=== PATIENT | female | born 1985 | race Caucasian/White ===

== ENCOUNTER 2017-06-26 14:47 | Emergency (ER) | payer MEDICAID ==
[2017-06-26] MEDS ORDERED: IPRATROPIUM/ALBUTEROL 0.5-2.5 MG/3 ML AMPUL NEB ONE ×2 (15:53→15:54)
[2017-06-26] MEDS ORDERED: ALBUTEROL SULFATE 0.083% NEB 2.5 MG/3 ML AMPUL NEB ONE (15:54)
[2017-06-26] MEDS ORDERED: PREDNISONE 20 MG TABLET PO ONE (16:00)
[2017-06-26] MEDS ORDERED: IPRATROPIUM BROMIDE 0.02% NEB 0.5 MG/2.5 ML AMPUL NEB ONE (16:00)
--- NOTE | 2017-06-26 16:01 | ER Document Report ---
HPI - HPI Patient complains to provider of: Asthma Pain Level: 0 Context: Patient is a 16 week 31-year-old female who presents emergency department with 2-3 days of shortness of breath. Patient does admit to history of asthma she states that she occasionally has a flare at this time a year and usually does fine with her home inhaler. She states that she went to use it she noticed that it was out of doses. She admits to dyspnea on exertion, shortness of breath. She states that she feels better at rest. Otherwise denies any productive cough, fever, chills. She admits to body aches due from coughing so much. States she has been taking Tylenol for discomfort. [facility] - REPRODUCTIVE Reproductive: DENIES: : Past Medical History - Social History Smoking Status: Never Smoker Family History: Reviewed & Not Pertinent Pulmonary Medical History: Reports: Hx Asthma - Immunizations Immunizations up to date: Yes Hx Diphtheria, Pertussis, Tetanus Vaccination: No Vertical Provider Document - CONSTITUTIONAL Agree With Documented VS: Yes Notes: PHYSICAL EXAM GENERAL: Alert, difficulty speaking in full sentences due to tachypnea and shortness of breath. HEENT: NCAT, pale conjunctiva, extraocular movements intact, pupils PERRL. external ear normal, no evidence of external auditory canal tenderness, blood/ drainage, cerumen impaction, TM intact without evidence of effusion, bulging, injection, MMM, Uvula midline. Airway patent. No evidence of tonsillar enlargement, peritonsillar abscess, retropharyngeal abscess. LUNGS: Diffuse wheezes and rhonchi worse with expiration in all lung hayden. No significant respiratory distress Patient maintaining her airway and able to speak in full sentences though labored breathing. HEART: Regular rate and rhythm. No murmurs, gallops, or rubs. ABDOMEN: Soft, nondistended, nontender. No guarding, rebound, or rigidity.. Bowel sounds present in all 4 quadrants. EXTREMITIES: Moves all 4 extremities spontaneously. No edema, radial and dorsalis pedis pulses 2/4 bilaterally. No cyanosis. NEUROLOGICAL: Alert and oriented x4. Normal speech. PSYCH: Normal affect, normal mood. SKIN: Warm, dry, normal turgor. No rashes or lesions noted. - INFECTION CONTROL TRAVEL OUTSIDE OF THE [place] IN LAST 30 DAYS: No - RESPIRATORY O2 Sat by Pulse Oximetry: 100 Course - Re-evaluation Re-evalutation: 06/26/17 16:00 patient is a 31-year-old female who is hemodynamically stable. patient states that she felt some improvement after first breathing treatment. Patient also concerned for worsening respiratory status and therefore was given prednisone for her acute asthma exacerbation. Patient remedicated with Atrovent for total of 3 doses. After her third dose she was ambulated in the emergency department with a desaturation down to 96% in immediate recovery to 98-99%. Heart rate remained approximately 100. She states that she felt much better walking in the ER. When seated back in her bed, still noted wheezes therefore she received 2 g of magnesium. Once completed wheezes greatly diminished in all hayden and patient's with stable vitals and clinically much improved. Case had been reviewed with RECENTERER Dr. Ayala who states that she will follow up with her on Tuesday for possible referral to sales service route manager given patient is medicated with family planning. Discussed with patient strict return precautions and is stable for discharge home. - Vital Signs Vital signs: Temp Pulse Resp BP Pulse Ox 98.0 F 100 18 123/70 100 06/26/17 15:05 06/26/17 15:05 06/26/17 15:05 06/26/17 15:05 06/26/17 15:05 Discharge - Discharge Clinical Impression: Asthma exacerbation Qualifiers: Asthma severity: moderate Asthma persistence: unspecified Qualified Code(s): J45.901 - Unspecified asthma with (acute) exacerbation Qualifiers: Weeks of gestation: 16 weeks Qualified Code(s): Z3A.16 - 16 weeks gestation of Condition: Good Disposition: HOME, SELF-CARE Additional Instructions: Please follow-up with Dr. Ayala on Tuesday. Her office contact numbers listed on this paperwork Asthma You have been diagnosed as having asthma. This is a condition where there is episodic tightness in the bronchial tubes. Allergies, infections, and polluted or cold air may be contributing factors. Emergency treatment of a severe asthma attack may include adrenaline shots , or bronchodilator aerosol. You may feel lightheaded, have a decreased exercise tolerance and a rapid pulse for an hour or two. Rest and get plenty of fluids. Home treatment of asthma requires bronchodilator drugs. These can be administered by injection, inhalation, or by mouth. Antibiotics and corticosteroids may be required for some patients. You should avoid chemical fumes, dusts, pollens, and exercising in very cold or dry air. If you smoke, stop!! If you develop a fever, increased wheezing, chest pain, or severe shortness of breath, you should contact the doctor immediately Prescriptions: Ipratropium Dalton [Atrovent Hfa] 12.9 gm IH ASDIR PRN #1 [id number] PRN Reason: Prednisone 20 mg PO TID 5 Days tablet Referrals: KANDICE AYALA MD [ACTIVE STAFF] - 06/28/17
[2017-06-26] MEDS ORDERED: ALBUTEROL SULFATE 0.083% NEB 2.5 MG/3 ML AMPUL NEB SCH (16:08)
[2017-06-26] MEDS: IPRATROPIUM BROMIDE 0.02% NEB 0.5 MG/2.5 ML AMPUL NEB PRN ×2 (16:38→17:25)
[2017-06-26] MEDS: MAGNESIUM SULFATE/D5W 1 GM/100 ML RTUPB IV SCH ×2 (18:53→19:13)
[2017-06-26 20:10] VITALS: BP 120/79
== END 2017-06-26 20:09 | disposition home or self-care (01) ==
LOC: ER 14:47
DX: O99.512 Diseases of the respiratory system complicating pregnancy, second trimester (principal); J45.901 Unspecified asthma with (acute) exacerbation; O26.892 Other specified pregnancy related conditions, second trimester; R05 Cough; Z3A.16 16 weeks gestation of pregnancy
CPT/HCPCS: 94640 ×2; 99283; 96365; J3475; J7512; J3490

== ENCOUNTER 2017-06-28 20:17 | Emergency (ER) | payer MEDICAID ==
[2017-06-28 21:08] LABS: A TYPE INFLUENZA AG NEGATIVE (NEGATIVE)
[2017-06-28 21:09] LABS: B INFLUENZA AG NEGATIVE (NEGATIVE)
[2017-06-28] MEDS ORDERED: AZITHROMYCIN 250 MG TABLET PO ONE (21:36)
--- NOTE | 2017-06-28 21:38 | ER Document Report ---
ED General - General Chief Complaint: Flu Symptoms Stated Complaint: SHORTNESS OF BREATH Time Seen by Provider: 06/28/17 20:35 Mode of Arrival: Ambulatory Information source: Patient Notes: 31-year-old female who is and was recently treated for asthma exacerbation 2 days ago presents with complaints of body aches fever. Patient states she was treated for her asthma and her symptoms improved, patient denies any nausea or vomiting admits to earache and green productive cough TRAVEL OUTSIDE OF THE [place] IN LAST 30 DAYS: No - HPI Onset: Other Onset/Duration: Better Severity: Mild Pain Level: 1 Associated symptoms: Productive cough, Earache, Shortness of breath Exacerbated by: Denies Relieved by: Other Similar symptoms previously: Yes Recently seen / treated by doctor: Yes - Related Data Allergies/Adverse Reactions: aspirin [Aspirin] Allergy (Verified 06/26/17 15:59) Coconut * [Coconut] Allergy (Verified 06/26/17 15:59) Past Medical History - Social History Smoking Status: Never Smoker Cigarette use (# per day): No Chew tobacco use (# tins/day): No Smoking Education Provided: No Frequency of alcohol use: None Drug Abuse: None Family History: Reviewed & Not Pertinent Patient has suicidal ideation: No Patient has homicidal ideation: No Pulmonary Medical History: Reports: Hx Asthma Renal/ Medical History: Denies: Hx Peritoneal Dialysis - Immunizations Immunizations up to date: Yes Hx Diphtheria, Pertussis, Tetanus Vaccination: No Review of Systems - Review of Systems Notes: REVIEW OF SYSTEMS: CONSTITUTIONAL : Denies fever, chills, or sweats. Denies recent illness. EENT: right ear pain CARDIOVASCULAR: Denies chest pain. Denies palpitations or racing or irregular heart beat. Denies ankle edema. RESPIRATORY: Denies cough, cold, or chest congestion. Denies shortness of breath, difficulty breathing, or wheezing. GASTROINTESTINAL: Denies abdominal pain or distention. Denies nausea, vomiting , or diarrhea. Denies blood in vomitus, stools, or per rectum. Denies black, tarry stools. Denies constipation. GENITOURINARY: Denies difficulty urinating, painful urination, burning, frequency, blood in urine, or discharge. FEMALE GENITOURINARY: Denies vaginal bleeding, heavy or abnormal periods, irregular periods. Denies vaginal discharge or odor. MUSCULOSKELETAL: Denies back or neck pain or stiffness. Denies joint pain or swelling. SKIN: Denies rash, lesions or sores. HEMATOLOGIC : Denies easy bruising or bleeding. LYMPHATIC: Denies swollen, enlarged glands. NEUROLOGICAL: Denies confusion or altered mental status. Denies passing out or loss of consciousness. Denies dizziness or lightheadedness. Denies headache. Denies weakness or paralysis or loss of use of either side. Denies problems with gait or speech. Denies sensory loss, numbness, or tingling. Denies seizures. PSYCHIATRIC: Denies anxiety or stress. Denies depression, suicidal ideation, or homicidal ideation. ALL OTHER SYSTEMS REVIEWED AND NEGATIVE. PHYSICAL EXAMINATION: GENERAL: Well-appearing, well-nourished and in no acute distress. HEAD: Atraumatic, normocephalic. EYES: Pupils equal round and reactive to light, extraocular movements intact, conjunctiva are normal. ENT: right tm is erythemtous and dull in appearance, left tm is clear NECK: Normal range of motion, supple without lymphadenopathy LUNGS: Breath sounds clear to auscultation bilaterally and equal. No wheezes rales or rhonchi. HEART: Regular rate and rhythm without murmurs ABDOMEN: Soft, nontender, nondistended abdomen. No guarding, no rebound. No masses appreciated. Female : deferred Musculoskeletal: Normal range of motion, no pitting or edema. No cyanosis. NEUROLOGICAL: Cranial nerves grossly intact. Normal speech, normal gait. Normal sensory, motor exams PSYCH: Normal mood, normal affect. SKIN: Warm, Dry, normal turgor, no rashes or lesions noted. Dictation was performed using [employer]OB voice recognition software Physical Exam - Vital signs Vitals: Temp Pulse Resp BP Pulse Ox 98.9 F 99 20 107/67 100 06/28/17 20:28 18 20:28 06/28/17 20:28 06/28/17 20:28 06/28/17 20:28 Interpretation: Normal Course - Re-evaluation Re-evalutation: 06/29/17 02:19 given patients well appearance, and negative influenza test i have very low suspicion for influenza pt does have right otitis media and given the productive cough she has had with these symptoms i will treat for occult pneumonia as well. pt given extremely strict return precautions but she does note that she is doing great and has no worsening of symptoms since being seen 2 days prior pt did note tingling in her fingers that resolved which i beleive was more of an acute stress reaction but that has also resolved. 06/29/17 02:21 After performing a Medical Screening Examination, I estimate there is LOW risk for ACUTE CORONARY SYNDROME, PULMONARY EMBOLI, RESPIRATORY FAILURE, SEPSIS OR MENINGITIS, thus I consider the discharge disposition reasonable. I have reevaluated this patient multiple times and no significant life threatening changes are noted. The patient and I have discussed the diagnosis and risks, and we agree with discharging home with close follow-up. We also discussed returning to the Emergency Department immediately if new or worsening symptoms occur. We have discussed the symptoms which are most concerning (e.g., changing or worsening pain, trouble swallowing or breathing, neck stiffness, fever) that necessitate immediate return. - Vital Signs Vital signs: Temp Pulse Resp BP Pulse Ox 98.3 F 85 16 105/67 98 06/28/17 21:56 06/28/17 21:56 06/28/17 21:56 06/28/17 21:56 06/28/17 21:56 - Diagnostic Test Radiology reviewed: Image reviewed, Reports reviewed - No acute abnormality Discharge - Discharge Clinical Impression: Otitis media Qualifiers: Otitis media type: suppurative Chronicity: acute Laterality: right Recurrence: not specified as recurrent Spontaneous tympanic membrane rupture: without spontaneous rupture Qualified Code(s): H66.001 - Acute suppurative otitis media without spontaneous rupture of ear drum, right ear URI (upper respiratory infection) Qualifiers: URI type: unspecified URI Qualified Code(s): J06.9 - Acute upper respiratory infection, unspecified Qualifiers: Weeks of gestation: unspecified Qualified Code(s): Z34.90 - Encounter for supervision of normal , unspecified, unspecified trimester Condition: Stable Disposition: HOME, SELF-CARE Instructions: Upper Respiratory Illness ([facility]), Viral Syndrome ([facility]) Additional Instructions: Follow up with your physician tomorrow for further care or return to the ED IMMEDIATELY if symptoms worsen or new concerns occur. If you cannot afford to follow up with your primary care physician a list of low cost clinics have been provided at the end of your discharge papers as well. Prescriptions: Azithromycin 250 mg PO DAILY #4 tablet
[2017-06-28 21:58] VITALS: BP 105/67
== END 2017-06-28 21:56 | disposition home or self-care (01) ==
LOC: ER 20:17
DX: O26.92 Pregnancy related conditions, unspecified, second trimester (principal); J06.9 Acute upper respiratory infection, unspecified; H66.001 Acute suppurative otitis media without spontaneous rupture of ear drum, right ear; M79.1 Myalgia; R50.9 Fever, unspecified; R20.2 Paresthesia of skin; Z88.6 Allergy status to analgesic agent
CPT/HCPCS: 99283; 87804; Q0144

== ENCOUNTER 2017-07-29 11:08 | Observation (INO) | payer MEDICAID ==
--- NOTE | 2017-07-29 12:11 | ER Document Report ---
ED General - General Mode of Arrival: Medic Information source: Patient, Emergency Med Personnel TRAVEL OUTSIDE OF THE [place] IN LAST 30 DAYS: No - HPI Patient complains to provider of: Vaginal Bleeding and cramping Onset: This morning Associated symptoms: Other - see notes above <EDIL DUBOIS - Last Filed: 07/29/17 14:09> <ANOOP CHAVES - Last Filed: 07/29/17 21:04> - General Chief Complaint: Vaginal Bleeding Stated Complaint: VAGINAL BLEEDING Time Seen by Provider: 07/29/17 11:09 Notes: 31 year old female (19 weeks; A2) presents to the ED via EMS complaining of vaginal bleeding and cramping that started earlier this morning. Patient reports that she has had a spontaneous in the past. Patient's last ultrasound was 1 month ago with normal development at that time. EMS reports blood glucose of 42. Patient has O negative blood. (EDIL DUBOIS) patient states that she felt like there was a bag hanging out and then ruptured and she saw the baby. EMS states that they try to deliver the fetus at home but they were unable to so they brought her to the emergency department. (ANOOP CHAVES) - Related Data Allergies/Adverse Reactions: aspirin [Aspirin] Allergy (Verified 06/26/17 15:59) Coconut * [Coconut] Allergy (Verified 06/26/17 15:59) Past Medical History - General Information source: Patient - Social History Smoking Status: Unknown if Ever Smoked Family History: Reviewed & Not Pertinent Pulmonary Medical History: Reports: Hx Asthma Renal/ Medical History: Denies: Hx Peritoneal Dialysis - Immunizations Immunizations up to date: Yes Hx Diphtheria, Pertussis, Tetanus Vaccination: No <EDIL DUBOIS - Last Filed: 07/29/17 14:09> Review of Systems - Review of Systems Constitutional: No symptoms reported EENT: No symptoms reported Cardiovascular: No symptoms reported Respiratory: No symptoms reported Gastrointestinal: See HPI, Abdominal pain - cramping Genitourinary: No symptoms reported Female Genitourinary: See HPI, - 19 weeks, Vaginal bleeding Musculoskeletal: No symptoms reported Skin: No symptoms reported Hematologic/Lymphatic: No symptoms reported Neurological/Psychological: No symptoms reported -: Yes All other systems reviewed and negative <EDIL DUBOIS - Last Filed: 07/29/17 14:09> Physical Exam <EDIL DUBOIS - Last Filed: 07/29/17 14:09> <ANOOP CHAVES - Last Filed: 07/29/17 21:04> - Vital signs Vitals: Pulse Resp BP Pulse Ox 104 H 18 135/86 H 97 07/29/17 11:10 07/29/17 11:10 07/29/17 11:10 07/29/17 11:10 - Notes Notes: GENERAL: Alert, interacts well. No acute distress. HEAD: Normocephalic, atraumatic. EYES: Pupils equal, round, and reactive to light. Extraocular movements intact. ENT: Oral mucosa moist, tongue midline. NECK: Full range of motion. Supple. Trachea midline. LUNGS: No respiratory distress. ABDOMEN: Semi-firm uterus. Lower abdomen tenderness to palpation. Non-distended. EXTREMITIES: Moves all 4 extremities spontaneously. No edema. No cyanosis. GENITOURINARY: Fetus was delivered foot first intact. Fetus did not have a heart rate, pulse, or any spontaneous respirations. Placenta was not delivered. Chord was cut and clamped. Baby was pre-term and not viable. Baby wrapped in a blanket and held by mother. Exam chaperoned by: Mayra Jamison. NEUROLOGICAL: Alert and oriented x3. Normal speech. PSYCH: Normal affect, normal mood. SKIN: Warm, dry, and normal turgor. No rashes or lesions noted. (EDIL DUBOIS) Added to the scribe exam, patient is somewhat tearful. This is appropriate for situation. Moderate amount of vaginal bleeding. (ANOOP CHAVES) Course - Laboratory Result Diagrams: 07/29/17 12:45 07/29/17 12:45 <EDIL DUBOIS - Last Filed: 07/29/17 14:09> - Laboratory Result Diagrams: 07/29/17 12:45 07/29/17 12:45 <ANOOP CHAVES - Last Filed: 07/29/17 21:04> - Re-evaluation Re-evalutation: 07/29/17 12:51 Patient came in with a footling breech spontaneous at approximately 19 weeks partially delivered at home. EMS attempted to deliver at home but was unable to. Here in the emergency department I did see that the patient had part of the torso, 2 feet and a cord hanging out of her vagina, after several pushes the patient was able to deliver the fetus intact, there were no spontaneous respirations or heartbeat, there were no the umbilical cord was not pulsatile. No indication for resuscitation, this fetus was pre-viability. Patient is aware of this. We did attempt over the next 45 minutes to an hour to deliver the placenta, after consultation with Dr. Valdivia the OB biofuels plant operations engineer we did clamp and cut the cord, patient was allowed to hold the fetus, a refrigerated bassinet was brought down to prolong the amount of time that the patient could spend with her son. Placenta has still not been delivered. Patient will be transferred to either to [place] or [address] [place] [address] to continue delivering the placenta. Patient has had a moderate amount of bleeding but has not been hypotensive, tachycardic or hypoxic. Patient is n.p.o., will be given IV acetaminophen for her headache. (ANOOP CHAVES) - Vital Signs Vital signs: Temp Pulse Resp BP Pulse Ox 97.8 F 72 16 99/59 L 98 07/29/17 20:11 07/29/17 20:11 07/29/17 20:11 07/29/17 20:11 07/29/17 20:11 Procedures - Additional Procedures Delivery of stillborn Time performed: 11:15 Additional Procedures: Other - Delivery of stillborn <ANOOP CHAVES - Last Filed: 07/29/17 21:04> - Additional Procedures Delivery of stillborn Notes: 07/29/17 21:02 Patient came in with partially delivered stillborn fetus, patient was placed on pelvic wedge, patient was coached to push, stillborn male fetus was delivered intact first, no spontaneous respirations or heartbeat. Fetus was pre- viability. After 40 minutes of attempting to deliver the placenta cord was clamped and cut. Patient was transferred to labor and delivery for surgical removal of placenta. (ANOOP CHAVES) Discharge <EDIL DUBOIS - Last Filed: 07/29/17 14:09> - Discharge Admitting Provider: [facility] - Dr. Valdivia Unit Admitted: Post - 2N or 2S <ANOOP CHAVES - Last Filed: 07/29/17 21:04> - Discharge Clinical Impression: Spontaneous Condition: Stable Disposition: ADMITTED OBSERVATION Scribe Attestation: 07/29/17 21:04 I personally performed the services described in the documentation, reviewed and edited the documentation which was dictated to the scribe in my presence, and it accurately records my words and actions. (ANOOP CHAVES) Scribe Documentation - Scribe Written by Scribe:: Claude Greene, 07/29/2017 1409 acting as scribe for :: Tripp <EDIL DUBOIS - Last Filed: 07/29/17 14:09>
[2017-07-29] MEDS ORDERED: ACETAMINOPHEN 100 ML IV ONE ×2 (12:14→18:56)
[2017-07-29 13:02] LABS: ABSOLUTE EOSINOPHILS # (AUTO) 0.1 10^3/uL (0.0-0.6); ABSOLUTE LYMPHOCYTES (AUTO) 1.4 10^3/uL (0.5-4.7); ABSOLUTE MONOCYTES (AUTO) 0.8 10^3/uL (0.1-1.4); ABSOLUTE NEUT (AUTO) 6.5 10^3/uL (1.7-8.2); BASOPHILS % (AUTO) 0.3 % (0-2); EOSINOPHILS % (AUTO) 1.6 % (0-6); HEMATOCRIT 28.7 % (36.0-47.0); HEMOGLOBIN 9.7 g/dL (12.0-15.5); LYMPHOCYTES % (AUTO) 15.5 % (13-45); MEAN CORPUSCULAR HEMOGLOBIN 30.9 pg (27.0-33.4); MEAN CORPUSCULAR HGB CONC 33.8 g/dL (32.0-36.0); MEAN CORPUSCULAR VOLUME 92 fl (80-97); MONOCYTES % (AUTO) 8.9 % (3-13); PLATELET COUNT 156 10^3/uL (150-450); RED BLOOD COUNT 3.13 10^6/uL (3.72-5.28); RED CELL DISTRIBUTION WIDTH 15.9 % (11.5-14.0); SEGMENTED NEUTROPHILS % (AUTO) 73.7 % (42-78); TOTAL CELLS COUNTED % (AUTO) 100 %; WHITE BLOOD COUNT 8.8 10^3/uL (4.0-10.5)
[2017-07-29 13:21] LABS: ALANINE AMINOTRANSFERASE 22 U/L (9-52); ALBUMIN 3.1 g/dL (3.5-5.0); ALKALINE PHOSPHATASE 60 U/L (38-126); ANION GAP 6 (5-19); ASPARTATE AMINO TRANSFERASE 19 U/L (14-36); BILIRUBIN,DIRECT 0.1 mg/dL (0.0-0.4); BILIRUBIN,TOTAL 0.1 mg/dL (0.2-1.3); BLOOD UREA NITROGEN 9 mg/dL (7-20); CALCIUM 8.9 mg/dL (8.4-10.2); CARBON DIOXIDE 25 mmol/L (22-30); CHLORIDE 107 mmol/L (98-107); GLUCOSE 82 mg/dL (75-110); POTASSIUM 4.2 mmol/L (3.6-5.0); SODIUM 137.5 mmol/L (137-145)
--- NOTE | 2017-07-29 13:35 | PDOC H&P ---
General Chief Complaint: pt had spontaneous ab in the ER and now has retained placenta. She is a ,0 ,2,1 at 19 weeks. denies any other complaints - Diagnosis (1) Retained placenta after delivery without hemorrhage but with other complication Is this a Current Diagnosis?: Yes (2) Spontaneous Is this a Current Diagnosis?: Yes - Current Medications/Allergies Allergies/Adverse Reactions: aspirin [Aspirin] Allergy (Verified 06/26/17 15:59) Coconut * [Coconut] Allergy (Verified 06/26/17 15:59) Past Medical History Medical History: None Pulmonary Medical History: Reports: Asthma Past Surgical History Past Surgical History: two prior elective abortions s Family History Family History: Reviewed & Not Pertinent Parental Family History Reviewed: No Children Family History Reviewed: No Sibling(s) Family History Reviewed.: No Social History Smoking Status: Unknown if Ever Smoked Physical Exam Vital Signs: Temp Pulse Resp BP Pulse Ox 104 H 18 135/86 H 97 07/29/17 11:10 07/29/17 11:10 07/29/17 11:10 07/29/17 11:10 General appearance: PRESENT: no acute distress Head exam: PRESENT: atraumatic Respiratory exam: PRESENT: clear to auscultation lorie GI/Abdominal exam: PRESENT: soft Psychiatric exam: PRESENT: anxious Impression/Plan Impression: spontaneous AB at 19 weeks with retained POC plan suction D&C
[2017-07-29] MEDS ORDERED: SUCCINYLCHOLINE CHLORIDE INJ 200 MG/10 ML VIAL ONE (13:41)
[2017-07-29] MEDS ORDERED: LIDOCAINE 2% INJ-PF (20 MG/ML) 10 ML AMPUL ONE (18:55)
[2017-07-29] MEDS ORDERED: FENTANYL CITRATE INJ/PF 100 MCG/2 ML AMPUL ONE (18:55)
[2017-07-29] MEDS ORDERED: ONDANSETRON HCL INJ/PF 4 MG/2 ML SDV ONE (18:56)
[2017-07-29] MEDS ORDERED: DEXAMETHASONE SOD PHOSPHATE INJ 4 MG/1 ML VIAL ONE (18:56)
[2017-07-29] MEDS ORDERED: MIDAZOLAM 2 MG/2 ML INJ ONE (18:56)
[2017-07-29] MEDS ORDERED: PROPOFOL INJ 200 MG/20 ML VIAL IV ONE (18:56)
[2017-07-29] MEDS ORDERED: DIPHENHYDRAMINE HCL 50 MG/ML VIAL IV PRN (19:17)
[2017-07-29] MEDS ORDERED: PROMETHAZINE HCL INJ 25 MG/1 ML VIAL IV PRN ×2 (19:17)
[2017-07-29] MEDS ORDERED: ONDANSETRON HCL INJ/PF 4 MG/2 ML SDV IV PRN (19:17)
[2017-07-29] MEDS ORDERED: FENTANYL CITRATE INJ/PF 100 MCG/2 ML AMPUL IV PRN ×3 (19:17)
[2017-07-29] MEDS ORDERED: MEPERIDINE HCL/PF INJ 25 MG/1 ML DISP.SYRIN IV PRN (19:17)
[2017-07-29] MEDS ORDERED: OXYCODONE-ACETAMINOPHEN 5-325 MG TABLET PO PRN ×3 (19:17→20:30)
[2017-07-29] MEDS: FENTANYL CITRATE INJ/PF 100 MCG/2 ML AMPUL ONE ×2 (19:35→19:41)
--- NOTE | 2017-07-29 19:39 | OPERATIVE REPORT E ---
Operative Report NAME: MAX LUNA : 1985 AGE: 31Y DATE OF SURGERY: 07/29/2017 ROOM: 204 PREOPERATIVE DIAGNOSIS: SPONTANEOUS AB WITH RETAINED PLACENTA. POSTOPERATIVE DIAGNOSIS: SPONTANEOUS AB WITH RETAINED PLACENTA. OPERATION: 2. Removal of placenta. SURGEON: Karl COELHO M.D. ANESTHESIA: General. ESTIMATED BLOOD LOSS: Less than 25 mL. TISSUE REMOVED: Placenta. PROCEDURE: Patient was placed in a dorsolithotomy position, prepped and draped in the usual sterile fashion. A speculum was placed in the cervix. Cervix was grasped with a single-toothed tenaculum. The os easily admitted a #12 suction catheter. Suction curettage was performed, followed by sharp curettage, followed by repeat suction, then repeat sharp curettage. The single-toothed tenaculum was removed and hemostasis was noted. She tolerated it well and was taken to recovery in good condition. DICTATING PHYSICIAN: Karl COELHO M.D. [id number] PHY#: [id number] ID: [id number] JOB#: [id number] ACCT: [id number] cc:Karl COELHO M.D. >
[2017-07-29] MEDS ORDERED: DEXTROSE 5%-LACTATED RINGERS 1,000 ML IV PRN (20:30)
[2017-07-29] MEDS ORDERED: IBUPROFEN 800 MG TABLET ONE (22:18)
--- NOTE | 2017-07-30 08:26 | PDOC PROGRESS REPORT ---
Subjective-OB Progress Note for:: 07/30/17 Subjective: doing well. tearful. no issues. vaginal bleeding decreased. pain controlled. wants to go home. Physical Exam (OB) Vital Signs: Temp Pulse Resp BP Pulse Ox 98.0 F 61 16 103/60 97 07/30/17 07:44 07/30/17 07:44 07/30/17 07:44 07/30/17 07:44 07/30/17 07:44 Intake & Output 07/29/17 07/30/17 07/31/17 06:59 06:59 06:59 Intake Total 1630 Output Total 581 Balance 1049 Weight 145 kg - General General Appearance: Other - tearful In distress: None - Lochia Lochia Amount: Small 10-25 ml Lochia Color: Rubra/Red - Abdomen Description: Soft Hernia Present: No Fundal Description: Firm, Midline - Nontender. Objective-Diagnostic Laboratory: 07/29/17 12:45 07/29/17 07/29/17 07/29/17 12:45 12:45 12:45 WBC 8.8 RBC 3.13 L Hgb 9.7 L Hct 28.7 L MCV 92 MCH 30.9 MCHC 33.8 RDW 15.9 H Plt Count 156 Seg Neutrophils % 73.7 Lymphocytes % 15.5 Monocytes % 8.9 Eosinophils % 1.6 Basophils % 0.3 Absolute Neutrophils 6.5 Absolute Lymphocytes 1.4 Absolute Monocytes 0.8 Absolute Eosinophils 0.1 Absolute Basophils 0.0 Sodium 137.5 Potassium 4.2 Chloride 107 Carbon Dioxide 25 Anion Gap 6 BUN 9 Creatinine 0.55 Est GFR ( Amer) > 60 Est GFR (Non-Af Amer) > 60 Glucose 82 Calcium 8.9 Total Bilirubin 0.1 L AST 19 ALT 22 Alkaline Phosphatase 60 Total Protein 6.0 L Albumin 3.1 L Blood Type O NEGATIVE Antibody Screen POSITIVE REVIEWED Assessment and Plan(PN) Plan:: s/p PPROM vaginal delivery at 19+ weeks with retained placenta s/p D&C 1. discharge today 2. advised to follow up in 1 week 3. risk for depression - may require counseling/medications - Time Spent with Patient Time with patient: Less than 15 minutes Medications reviewed and adjusted accordingly: Yes - Disposition Anticipated Discharge: Home
[2017-07-30 08:27] LABS: HEMOGLOBIN 8.4 g/dL (12.0-15.5); MEAN CORPUSCULAR HGB CONC 33.6 g/dL (32.0-36.0); MEAN CORPUSCULAR VOLUME 92 fl (80-97); PLATELET COUNT 178 10^3/uL (150-450); RED BLOOD COUNT 2.71 10^6/uL (3.72-5.28); RED CELL DISTRIBUTION WIDTH 16.1 % (11.5-14.0); WHITE BLOOD COUNT 8.2 10^3/uL (4.0-10.5)
[2017-07-30] MEDS ORDERED: IBUPROFEN 800 MG TABLET PO SCH (10:00)
[2017-07-30 12:22] VITALS: BP 108/60
== END 2017-07-30 12:38 | disposition home or self-care (01) ==
LOC: ER 11:08 → EH 12:27 → UNDOADMOB 12:27 → EH 13:16 → 2N 13:16
PROVIDERS: ADMIT Specialist; ATTEND Specialist
PROC: 10D17ZZ Extraction of Products of Conception, Retained, Via Natural or Artificial Opening (ICD-10-PCS; principal; 2017-07-29 16:30)
DX: O03.4 Incomplete spontaneous abortion without complication (principal); Z37.1 Single stillbirth
CPT/HCPCS: 99285; 86900 ×2; 86901 ×2; 36415 ×2; 85461; 86870; 86850; 86922; 82962; 85025; 85027; 80053; 86920; 88305 ×2; 59812; G0378 ×2; J2790; J2250; J3490 ×3; J1100; J3010; J0330; J2405; J2704; J0131; 940

== ENCOUNTER 2018-03-13 20:42 | Emergency (ER) | payer MEDICAID ==
[2018-03-13 21:08] VITALS: BP 109/62
[2018-03-13 21:38] LABS: ABSOLUTE EOSINOPHILS # (AUTO) 0.1 10^3/uL (0.0-0.6); ABSOLUTE LYMPHOCYTES (AUTO) 1.4 10^3/uL (0.5-4.7); ABSOLUTE MONOCYTES (AUTO) 0.8 10^3/uL (0.1-1.4); ABSOLUTE NEUT (AUTO) 7.5 10^3/uL (1.7-8.2); BASOPHILS % (AUTO) 0.3 % (0-2); EOSINOPHILS % (AUTO) 0.8 % (0-6); HEMATOCRIT 32.6 % (36.0-47.0); HEMOGLOBIN 11.3 g/dL (12.0-15.5); LYMPHOCYTES % (AUTO) 14.1 % (13-45); MEAN CORPUSCULAR HEMOGLOBIN 31.3 pg (27.0-33.4); MEAN CORPUSCULAR HGB CONC 34.7 g/dL (32.0-36.0); MEAN CORPUSCULAR VOLUME 90 fl (80-97); MONOCYTES % (AUTO) 8.2 % (3-13); PLATELET COUNT 156 10^3/uL (150-450); RED BLOOD COUNT 3.62 10^6/uL (3.72-5.28); RED CELL DISTRIBUTION WIDTH 13.6 % (11.5-14.0); SEGMENTED NEUTROPHILS % (AUTO) 76.6 % (42-78); TOTAL CELLS COUNTED % (AUTO) 100 %; WHITE BLOOD COUNT 9.8 10^3/uL (4.0-10.5)
[2018-03-13 21:41] LABS: APPEARANCE,URINE CLOUDY; BILIRUBIN,URINE NEGATIVE (NEGATIVE); COLOR,URINE YELLOW; GLUCOSE, URINE NEGATIVE (NEGATIVE); KETONES,URINE NEGATIVE (NEGATIVE); LEUKOCYTE ESTERASE,URINE TRACE (NEGATIVE); NITRITE,URINE NEGATIVE (NEGATIVE); PROTEIN,URINE NEGATIVE (NEGATIVE); URINE SPECIFIC GRAVITY 1.017; UROBILINOGEN,URINE NEGATIVE mg/dL (<2.0)
--- NOTE | 2018-03-13 22:37 | ER Document Report ---
ED Medical Screen (RME) - General Chief Complaint: Vaginal Bleeding Stated Complaint: BLEEDING IN 7WKS Time Seen by Provider: 03/13/18 22:28 Notes: Patient is a 32-year-old presenting to the emergency department with vaginal bleeding. Patient states today she was at her second appointment at the health department for . Patient states she thinks she is 2 months . States after leaving the health department she noticed that she had vaginal spotting. Patient states she has gone through one pad since this afternoon. Patient denies any abdominal or pelvic pain, nausea, vomiting, fevers. Patient states she presents to the emergency room because the health department told her to come "get a shot." Past medical history: None Medications: None Allergies: Aspirin Physical exam: Abdomen is soft nontender nondistended all 4 quadrants no pelvic pain. No CVA tenderness. Patient nontoxic-appearing. I have greeted and performed a rapid initial assessment of this patient. A comprehensive ED assessment and evaluation of the patient, analysis of test results and completion of the medical decision making process will be conducted by additional ED providers. TRAVEL OUTSIDE OF THE [place] IN LAST 30 DAYS: No - Related Data Allergies/Adverse Reactions: aspirin [Aspirin] Allergy (Verified 06/26/17 15:59) Coconut * [Coconut] Allergy (Verified 06/26/17 15:59) Past Medical History Pulmonary Medical History: Reports: Hx Asthma Renal/ Medical History: Denies: Hx Peritoneal Dialysis - Immunizations Immunizations up to date: Yes Hx Diphtheria, Pertussis, Tetanus Vaccination: No History of Influenza Vaccine for 02/2017 - 07/2017 Season: Refused Physical Exam - Vital signs Vitals: Temp Pulse Resp BP Pulse Ox 98.9 F 81 16 109/62 100 03/13/18 21:07 03/13/18 21:07 03/13/18 21:07 03/13/18 21:07 03/13/18 21:07 Course - Vital Signs Vital signs: Temp Pulse Resp BP Pulse Ox 98.9 F 81 16 109/62 100 03/13/18 21:07 03/13/18 21:07 03/13/18 21:07 03/13/18 21:07 03/13/18 21:07 - Laboratory Result Diagrams: 03/13/18 21:00 Laboratory results interpreted by me: 03/13/18 03/13/18 21:00 21:00 RBC 3.62 L Hgb 11.3 L Hct 32.6 L Urine Blood MODERATE H Ur Leukocyte Esterase TRACE H
[2018-03-13 22:59] LABS: BLOOD UREA NITROGEN 7 mg/dL (7-20); CALCIUM 9.4 mg/dL (8.4-10.2); CARBON DIOXIDE 21 mmol/L (22-30); CHLORIDE 103 mmol/L (98-107); GLUCOSE 82 mg/dL (75-110)
[2018-03-13 23:00] LABS: ANION GAP 14 (5-19); SODIUM 137.5 mmol/L (137-145)
== END 2018-03-13 23:00 | disposition left against medical advice (07) ==
LOC: ER 20:42
DX: Z53.21 Procedure and treatment not carried out due to patient leaving prior to being seen by health care provider (principal); O46.91 Antepartum hemorrhage, unspecified, first trimester; O99.52 Diseases of the respiratory system complicating childbirth; Z3A.01 Less than 8 weeks gestation of pregnancy
CPT/HCPCS: 36415; 80048; 81001; 84702; 85025; 86850; 86900; 86901; 99281; 99284

== ENCOUNTER 2018-05-03 17:34 | Emergency (ER) | payer MEDICAID ==
--- NOTE | 2018-05-03 19:47 | ER Document Report ---
ED Respiratory Problem - General Chief Complaint: Cough Stated Complaint: FLU SYMPTOMS Time Seen by Provider: 05/03/18 19:42 Mode of Arrival: Ambulatory Information source: Patient Notes: Patient is a 32-year-old female comes emergency room complaining of a cough with laryngitis for the past week. She states that she is primarily here because her mother meter. Patient states the reason for this is she is . She has had 2+ home test this past week. Her last menstrual period was approximately end of January. She is due to see Dr. Mason next week. She denies any symptoms related to she has had no spotting no abdominal pain no pelvic pain is all been a normal process there. She is primarily complaining of a cough that has a productive yellowish type phlegm. Patient denies smoking. And laryngitis is the second most problem other than the cough. TRAVEL OUTSIDE OF THE [place] IN LAST 30 DAYS: No - HPI Patient complains to provider of: Cough, Short of breath Onset: Last week Duration: Continuous Initiating Event: URI Quality of pain: No pain Severity: None Pain Level: 0 Context: . denies: Smoker Short of Breath: Mild Chest pain/discomfort: denies: Constant, Pain - She left Cough: Productive Sputum amount: Scant - He came here Sputum color: Yellow Sputum consistency: Thick Associated symptoms: Congestion, Cough, Runny nose - Your Cruzito should be 35 Similar symptoms previously: No Recently seen / treated by doctor: No - Related Data Allergies/Adverse Reactions: aspirin [Aspirin] Allergy (Verified 05/03/18 17:35) Coconut * [Coconut] Allergy (Verified 05/03/18 17:35) Past Medical History - General Information source: Patient - Social History Smoking Status: Never Smoker Cigarette use (# per day): No Chew tobacco use (# tins/day): No Smoking Education Provided: No Frequency of alcohol use: None Drug Abuse: None Family History: Reviewed & Not Pertinent Pulmonary Medical History: Reports: Hx Asthma Renal/ Medical History: Denies: Hx Peritoneal Dialysis - Immunizations Immunizations up to date: Yes Hx Diphtheria, Pertussis, Tetanus Vaccination: No Review of Systems - Review of Systems Constitutional: No symptoms reported EENT: Ear pain, Nose congestion, Sinus discharge Cardiovascular: No symptoms reported Respiratory: See HPI, Cough, Sputum Gastrointestinal: No symptoms reported Genitourinary: No symptoms reported Female Genitourinary: No symptoms reported Musculoskeletal: No symptoms reported Skin: No symptoms reported Hematologic/Lymphatic: No symptoms reported Neurological/Psychological: No symptoms reported -: Yes All other systems reviewed and negative Physical Exam - Vital signs Vitals: Temp Pulse Resp BP Pulse Ox 97.7 F 85 17 113/70 100 05/03/18 17:50 05/03/18 17:50 05/03/18 17:50 05/03/18 17:50 05/03/18 17:50 Interpretation: Normal - Notes Notes: PHYSICAL EXAMINATION: GENERAL: Patient is well-nourished well-developed 32-year-old female who is in no apparent distress on physical examination this evening. HEAD: Atraumatic, normocephalic. EYES: Pupils equal round and reactive to light, extraocular movements intact, conjunctiva are normal. ENT: Examination head and upper airway showed nasal mucosa to be mildly erythe matous and edematous with some yellowish rhinorrhea. Bilateral nasal congestion is noted to. Bilateral TMs are normal in appearance no air-fluid levels noted. External canals are clean. There is no erythema of the external canals. Posterior pharynx shows moderate erythema with postnasal drainage in the posterior pharynx that is yellowish in color. Very thick as well. Uvula is midline no encroachment upon it. Airway is patent. NECK: Normal range of motion, supple without lymphadenopathy LUNGS: Breath sounds clear to auscultation bilaterally and equal. No wheezes rales or rhonchi. HEART: Regular rate and rhythm without murmurs Female : deferred Musculoskeletal: Normal range of motion, no pitting or edema. No cyanosis. NEUROLOGICAL: Normal speech, normal gait. Normal sensory, motor exams PSYCH: Normal mood, normal affect. SKIN: Warm, Dry, normal turgor, no rashes or lesions noted. Course - Re-evaluation Re-evalutation: 05/03/18 19:51 Patient's course of stay has basically been uneventful. She was informative and stating that she is but not sure how far along she is. She has follow-up with Dr. Mason next week. She is having no concerns about the and does not want any involvement of that at this time. She is having primary complaint of the laryngitis with a cough. We will try to put her on some Benadryl which is safe in as well as some nasal steroid and she will start taking a Knickerbocker vitamin until she can get into see her [employer] Dr. Mason. - Vital Signs Vital signs: Temp Pulse Resp BP Pulse Ox 97.7 F 85 17 113/70 100 05/03/18 17:50 05/03/18 17:50 05/03/18 17:50 05/03/18 17:50 05/03/18 17:50 Discharge - Discharge Clinical Impression: Viral upper respiratory infection, Nasal congestion Disposition: HOME, SELF-CARE Instructions: Upper Respiratory Illness ([facility]), Viral Syndrome ([facility]) Additional Instructions: UPPER RESPIRATORY ILLNESS: You have a viral infection of the respiratory passages -- a "cold." This common infection causes nasal congestion, drainage, and often sore throat and cough. It is highly contagious. The disease usually lasts about 10 to 14 days. There is no "cure" for the viral infection -- it must run its course. If there is a complication, such as bacterial infection in the nose, sinuses, middle ear, or bronchial tubes, antibiotics may be required. The antibiotics won't affect the virus. Drink plenty of fluids. A humidifier may help. An expectorant medication or decongestant may make you more comfortable. Use acetaminophen or ibuprofen for fever or aches. See the doctor if fever persists over two days, if there is any significant worsening of your symptoms, or if you simply fail to improve as expected. USE OF ACETAMINOPHEN (Tylenol): Acetaminophen may be taken for pain relief or fever control. It's much safer than aspirin, offering a wider range of "safe" dosages. It is safe during . Some brand names are Tylenol, Panadol, Datril, Anacin 3, Tempra, and Liquiprin. Acetaminophen can be repeated every four hours. The following are maximum recommended dosages: >89 pounds or adults 650 mg to 900 mg Acetaminophen can be repeated every four hours. Maximum dose not to exceed 4000 mg a day. FOLLOW-UP CARE: If you have been referred to a physician for follow-up care, call the physicians office for an appointment as you were instructed or within the next two days. If you experience worsening or a significant change in your symptoms, notify the physician immediately or return to the Emergency Department at any time for re-evaluation. As we discussed with laryngitis which usually is a virus. Giving her congested and having a cough he would can dry up the drainage to cough to go away. You may take Benadryl 25-50 mg every 6 hours for the congestion. This is category B in and safe. You can also use nasal saline 3-4 times a day or if whenever you think about it spray her nose to keep it moist and secretions thin. And also on putting you on a nasal steroid which states local in the area mostly which will help reduce the inflammation in the area and will also hopefully help with laryngitis symptoms which also will lead to reducing the cough. Should you have any concerns or problems return to ER for recheck. It is a must that you follow-up with your [employer] next week as planned. Prescriptions: Fluticasone Propionate [Flonase Nasal [place] 50 Mcg/[place] 16 gm] 2 sprays NASL DAILY 7 Days #1 inhaler Referrals: NASIM MASON MD [ACTIVE STAFF] - Follow up as needed
[2018-05-07] MEDS ORDERED: MEPERIDINE HCL/PF INJ 25 MG/1 ML DISP.SYRIN IV PRN (12:17)
[2018-05-07] MEDS ORDERED: OXYCODONE-ACETAMINOPHEN 5-325 MG TABLET PO PRN ×2 (12:17)
[2018-05-07] MEDS ORDERED: PROMETHAZINE HCL INJ 25 MG/1 ML VIAL IV PRN ×2 (12:17)
[2018-05-07] MEDS ORDERED: ONDANSETRON HCL INJ/PF 4 MG/2 ML SDV IV PRN (12:17)
[2018-05-07] MEDS ORDERED: FENTANYL CITRATE INJ/PF 100 MCG/2 ML AMPUL IV PRN ×3 (12:17)
[2018-05-07] MEDS ORDERED: DIPHENHYDRAMINE HCL 50 MG/ML VIAL IV PRN (12:17)
[2018-05-07 13:45] VITALS: BP 91/60
== END 2018-05-03 20:18 | disposition home or self-care (01) ==
LOC: ER 17:34
DX: J06.9 Acute upper respiratory infection, unspecified (principal); B97.89 Other viral agents as the cause of diseases classified elsewhere; R09.81 Nasal congestion; R05 Cough; R06.02 Shortness of breath; R09.89 Other specified symptoms and signs involving the circulatory and respiratory systems
CPT/HCPCS: 99283

== ENCOUNTER 2018-05-07 08:51 | Inpatient (IN) | payer MEDICAID ==
[2018-05-07 09:57] LABS: APPEARANCE,URINE CLEAR; BILIRUBIN,URINE NEGATIVE (NEGATIVE); COLOR,URINE YELLOW; GLUCOSE, URINE NEGATIVE (NEGATIVE); KETONES,URINE NEGATIVE (NEGATIVE); LEUKOCYTE ESTERASE,URINE TRACE (NEGATIVE); NITRITE,URINE NEGATIVE (NEGATIVE); PROTEIN,URINE NEGATIVE (NEGATIVE); URINE SPECIFIC GRAVITY 1.016
[2018-05-07 09:58] LABS: ABSOLUTE EOSINOPHILS # (AUTO) 0.1 10^3/uL (0.0-0.6); ABSOLUTE LYMPHOCYTES (AUTO) 1.8 10^3/uL (0.5-4.7); ABSOLUTE MONOCYTES (AUTO) 0.8 10^3/uL (0.1-1.4); BASOPHILS % (AUTO) 0.3 % (0-2); EOSINOPHILS % (AUTO) 1.3 % (0-6); HEMATOCRIT 32.1 % (36.0-47.0); HEMOGLOBIN 10.9 g/dL (12.0-15.5); LYMPHOCYTES % (AUTO) 18.3 % (13-45); MEAN CORPUSCULAR HEMOGLOBIN 31.4 pg (27.0-33.4); MEAN CORPUSCULAR VOLUME 92 fl (80-97); MONOCYTES % (AUTO) 8.4 % (3-13); PLATELET COUNT 216 10^3/uL (150-450); RED BLOOD COUNT 3.47 10^6/uL (3.72-5.28); RED CELL DISTRIBUTION WIDTH 14.9 % (11.5-14.0); SEGMENTED NEUTROPHILS % (AUTO) 71.7 % (42-78); TOTAL CELLS COUNTED % (AUTO) 100 %; WHITE BLOOD COUNT 9.8 10^3/uL (4.0-10.5)
--- NOTE | 2018-05-07 10:18 | ER Document Report ---
ED GI/ - General Chief Complaint: Abdominal Pain Stated Complaint: ABDOMINAL PAIN Time Seen by Provider: 05/07/18 09:08 Notes: 32-year-old female presents to the ER with a lujan of fluid after having sexual intercourse. Patient states she is approximately 16 weeks her and her boyfriend were having sexual intercourse when there is a big lujan of fluid. There is been no bleeding she has had a lot of cramping. The patient was broug ht here via EMS for further evaluation and treatment. Patient describes severe cramping in her lower abdomen it comes and goes she denies any bleeding. The patient is 5 para 1. AB 3. Last menstrual period was February 03. demise was born breech and she had to have D&C afterwards. TRAVEL OUTSIDE OF THE [place] IN LAST 30 DAYS: No - Related Data Allergies/Adverse Reactions: aspirin [Aspirin] Allergy (Verified 05/03/18 17:35) Coconut * [Coconut] Allergy (Verified 05/03/18 17:35) Past Medical History - Social History Smoking Status: Former Smoker Family History: Reviewed & Not Pertinent Patient has suicidal ideation: No Patient has homicidal ideation: No Pulmonary Medical History: Reports: Hx Asthma Renal/ Medical History: Denies: Hx Peritoneal Dialysis Past Surgical History: Reports: Hx Gynecologic Surgery - Immunizations Immunizations up to date: Yes Hx Diphtheria, Pertussis, Tetanus Vaccination: No Review of Systems - Review of Systems Constitutional: denies: Chills, Fever EENT: denies: Blurred vision Cardiovascular: denies: Chest pain, Dyspnea, Edema Respiratory: denies: Short of breath Gastrointestinal: Abdominal pain, Nausea. denies: Vomiting Genitourinary: denies: Dysuria Female Genitourinary: , Vaginal discharge, Other - Lujan of fluid Neurological/Psychological: Headaches -: Yes All other systems reviewed and negative Physical Exam - Vital signs Vitals: Temp Pulse Resp BP Pulse Ox 98.3 F 86 16 130/66 H 97 05/07/18 09:00 05/07/18 09:00 05/07/18 09:00 05/07/18 09:00 05/07/18 09:00 - Notes Notes: GENERAL_APPEARANCE: well_nourished, alert, cooperative, appears anxious and uncomfortable VITALS: reviewed, see vital signs table. HEAD: no_swelling\tenderness on the head. EYES: conjunctiva_clear. NOSE: no_nasal_discharge. MOUTH: (-)decreased moisture. THROAT: no_throat_inflammation, no_airway_obstruction. no_lymphadenopathy NECK: supple, no_neck_tenderness, (-)thyromegaly. BACK: no_back_tenderness. CHEST_WALL: no_chest_tenderness. LUNGS: no_wheezing, no_rales, no_rhonchi, (-)accessory muscle use, good air exchange bilateral. HEART: normal_rate, normal_rhythm, normal_S1, normal_S2, (-)S3, (-)S4, no_murmur, no_rub. ABDOMEN: soft, no_abd_tenderness, (-)guarding, (-)rebound, no_organomegaly, no_abd_masses. Uterus is within the pelvis FEMALE : There is no obvious bleeding but there is fluid present on the bed. Pelvic exam shows an open office with parts within the vagina. There is no active bleeding EXTREMITIES:good pulses in all_extremities, no_swelling\tenderness in the extremities, no_edema. SKIN: warm, dry, good_color, no_rash. MENTAL_STATUS: speech_clear, oriented_X_3, normal_affect, responds_appropriately to questions. Course - Re-evaluation Re-evalutation: 05/07/18 10:16 32-year-old female who is 5 para 1 with a last menstrual period of February 03 presents to the ER with a gush of fluid. Pelvic does show an open office with contents. If I calculate the dates from January this is only place the patient is at 13 weeks 2 days. The patient certainly has a miscarriage. She is beyond 8 weeks and may require D&C strange enough there is really no bleeding. There was a lot of clear fluid. She has been observed here for a while and does not seem to be progressing. I will speak with the on-call [employer] WORK[employer]. The patient's care is usually through the health department. 05/07/18 10:[address] Nikole Valdivia [employer]. She will come down to the emergency department to evaluate the patient. 05/07/18 10:[address] Valdivia -- pt will go to the OR for DNC. - Vital Signs Vital signs: Temp Pulse Resp BP Pulse Ox 98.3 F 86 16 130/66 H 97 05/07/18 09:00 05/07/18 09:00 05/07/18 09:00 05/07/18 09:00 05/07/18 09:00 - Laboratory Result Diagrams: 05/07/18 09:12 05/07/18 09:12 Laboratory results interpreted by me: 05/07/18 05/07/18 09:12 09:33 RBC 3.47 L Hgb 10.9 L Hct 32.1 L RDW 14.9 H Urine Urobilinogen 4.0 H Ur Leukocyte Esterase TRACE H Discharge - Discharge Clinical Impression: Spontaneous Condition: Fair Disposition: SAME DAY SURGERY Admitting Provider: [facility] Admitted: OR
[2018-05-07 11:01] LABS: ALANINE AMINOTRANSFERASE 13 U/L (9-52); ALBUMIN 3.6 g/dL (3.5-5.0); ALKALINE PHOSPHATASE 105 U/L (38-126); ANION GAP 12 (5-19); ASPARTATE AMINO TRANSFERASE 24 U/L (14-36); BILIRUBIN,DIRECT 0.3 mg/dL (0.0-0.4); BILIRUBIN,TOTAL 0.4 mg/dL (0.2-1.3); BLOOD UREA NITROGEN 6 mg/dL (7-20); CALCIUM 9.3 mg/dL (8.4-10.2); CARBON DIOXIDE 19 mmol/L (22-30); CHLORIDE 107 mmol/L (98-107); GLUCOSE 72 mg/dL (75-110); LIPASE 77.6 U/L (23-300); POTASSIUM 4.3 mmol/L (3.6-5.0); SODIUM 137.7 mmol/L (137-145)
[2018-05-07] MEDS ORDERED: MIDAZOLAM 2 MG/2 ML INJ ONE (11:30)
[2018-05-07] MEDS ORDERED: KETOROLAC TROMETHAMINE 60 MG/2 ML SDV ONE (11:30)
[2018-05-07] MEDS ORDERED: FAMOTIDINE INJ/PF 20 MG/2 ML SDV IV PRN (11:30)
[2018-05-07] MEDS ORDERED: DOXYCYCLINE HYCLATE 100 MG in DEXTROSE 5%-WATER 250 ML IV PRN (11:30)
[2018-05-07] MEDS ORDERED: DEXAMETHASONE SOD PHOSPHATE INJ 4 MG/1 ML VIAL ONE (11:30)
[2018-05-07] MEDS ORDERED: FENTANYL CITRATE INJ/PF 100 MCG/2 ML AMPUL ONE (11:30)
[2018-05-07] MEDS ORDERED: LIDOCAINE 2% INJ-PF (20 MG/ML) 10 ML AMPUL ONE (11:30)
[2018-05-07] MEDS ORDERED: ONDANSETRON HCL INJ/PF 4 MG/2 ML SDV ONE (11:31)
[2018-05-07] MEDS ORDERED: ACETAMINOPHEN 1,000 MG/100 ML RTUPB IV ONE (11:31)
[2018-05-07] MEDS ORDERED: PROPOFOL INJ 200 MG/20 ML VIAL IV ONE (11:31)
[2018-05-07] MEDS ORDERED: MISOPROSTOL 0.2 MG TABLET ONE (12:29)
--- NOTE | 2018-05-07 13:38 | OPERATIVE REPORT E ---
Operative Report NAME: MAX LUNA : 1985 AGE: 32Y DATE OF SURGERY: 05/07/2018 ROOM: ED01 PREOPERATIVE DIAGNOSIS: INCOMPLETE AB. POSTOPERATIVE DIAGNOSIS: INCOMPLETE AB. SURGEON: ASHLEY CARR M.D. ANESTHESIA: Dr. Augustine with [facility] FINDINGS: Open cervical os with placental tissue obvious. Patient fetus has passed already in the ER and intact. It was approximately a 12-week fetus. Copious amounts of placental tissue was removed. ESTIMATED BLOOD LOSS: Approximately 200 mL. SPECIMENS REMOVED: Products of conception, placental tissue. PROCEDURE: Suctioned curettage. PROCEDURE IN DETAIL: The patient was taken to the operating room and prepared and draped in a normal sterile fashion in the dorsal lithotomy position. An In-and-Out catheter was performed of approximately 300 mL of clear urine. Sterile speculum was placed in the vagina. Cervix was grasped on the anterior lip with a single-toothed tenaculum. The cervix was already well-dilated to accommodate an 8 mm [place] curved curette. Therefore, suction was established right away. There was a large amount of blood clots in the vagina that were swept away. The suction curettage was instrumented through the cervix and a small amount of tissue was obtained. No further tissue would come so sharp instrumentation with a [place] curette as well as a ring forceps was performed and large chunks of placental tissue were obtained in this manner. Suction curettage was performed again until I felt that the uterus was completely empty. I did instrument once more with both the ring forceps and a [place] curette and did not obtain any further placental tissue. The patient did have a small amount of bleeding at this point. I did place 800 mcg of Cytotec into the rectum with the right hand and palpated the cervix with the left hand and waited for the cervix to begin to show evidence of contracture and the bleeding did become much more minimal at this point. Instruments were then removed. Sponge, lap, and needle counts were correct x2. The patient was taken to recovery in stable condition. DICTATING PHYSICIAN: ASHLEY CARR M.D. [id number] PHY#: [id number] [id number] JOB#: [id number] ACCT: [id number] cc:ASHLEY CARR M.D. >
[2018-05-07 13:54] VITALS: BP 130/66
[2018-05-07] MEDS ORDERED: IBUPROFEN 800 MG TABLET ONE (14:41)
[2018-05-07] MEDS ORDERED: IBUPROFEN 800 MG TABLET PO PRN (14:47)
--- NOTE | 2018-05-07 15:50 | PDOC DISCHARGE SUMMARY ---
General - Admit/Disc Date/PCP Admission Date/Primary Care Provider: 05/07/18 10:48 Discharge Date: 05/07/18 - Discharge Diagnosis (1) Spontaneous Is this a current diagnosis for this admission?: Yes (2) Retained placenta after delivery without hemorrhage but with other complication Is this a current diagnosis for this admission?: Yes - Additional Information Discharge Diet: As Tolerated, Regular Discharge Activity: Activity As Tolerated, Balance Activity w/Rest, Pelvic Rest, No tub bath Home Medications: Methadone HCl [Dolophine 10 mg Tablet] 85 mg PO DAILY 07/29/17 Fluticasone Propionate [Flonase Nasal [place] 50 Mcg/[place] 16 gm] 2 sprays NASL DAILY 7 Days #1 inhaler 05/03/18 Doxylamine Succinate/Vit B6 [Diclegis Dr 10-10 mg Tablet] 2 tab PO QHS 05/07/18 History of Present Illness History of Present Illness: MAX LUNA is a 32 year old female Hospital Course Hospital Course: incomplete AB. Underwent D&C for removal of retained placenta. Physical Exam - Physical Exam Vital Signs: Temp Pulse Resp BP Pulse Ox 98.8 F 66 16 130/66 H 100 05/07/18 13:47 05/07/18 13:47 05/07/18 13:47 05/07/18 13:47 05/07/18 13:47 Intake & Output 05/06/18 05/07/18 05/08/18 06:59 06:59 06:59 Weight 68.039 kg General appearance: PRESENT: no acute distress, cooperative - Gynecological Exam Labia: normal Urethra: normal Vagina: normal Cervix: other - dilated - Obstetrical Exam Fundal Height: u/3 - u/4 Tender: No Adhexa: normal Result Laboratory Results: 05/07/18 09:12 05/07/18 10:25 05/07/18 05/07/18 05/07/18 09:12 09:12 09:33 WBC 9.8 RBC 3.47 L Hgb 10.9 L Hct 32.1 L MCV 92 MCH 31.4 MCHC 34.0 RDW 14.9 H Plt Count 216 Seg Neutrophils % 71.7 Lymphocytes % 18.3 Monocytes % 8.4 Eosinophils % 1.3 Basophils % 0.3 Absolute Neutrophils 7.0 Absolute Lymphocytes 1.8 Absolute Monocytes 0.8 Absolute Eosinophils 0.1 Absolute Basophils 0.0 Sodium Cancelled Potassium Cancelled Chloride Cancelled Carbon Dioxide Cancelled Anion Gap Cancelled BUN Cancelled Creatinine Cancelled Est GFR ( Amer) Cancelled Est GFR (Non-Af Amer) Cancelled Glucose Cancelled Calcium Cancelled Total Bilirubin Cancelled AST Cancelled ALT Cancelled Alkaline Phosphatase Cancelled Total Protein Cancelled Albumin Cancelled Lipase Cancelled Urine Color YELLOW Urine Appearance CLEAR Urine pH 7.0 Ur Specific [place] 1.016 Urine Protein NEGATIVE Urine Glucose (UA) NEGATIVE Urine Ketones NEGATIVE Urine Blood NEGATIVE Urine Nitrite NEGATIVE Ur Leukocyte Esterase TRACE H Urine WBC (Auto) 1 Urine RBC (Auto) 1 Blood Type Antibody Screen 05/07/18 05/07/18 09:33 10:25 WBC RBC Hgb Hct MCV MCH MCHC RDW Plt Count Seg Neutrophils % Lymphocytes % Monocytes % Eosinophils % Basophils % Absolute Neutrophils Absolute Lymphocytes Absolute Monocytes Absolute Eosinophils Absolute Basophils Sodium 137.7 Potassium 4.3 Chloride 107 Carbon Dioxide 19 L Anion Gap 12 BUN 6 L Creatinine 0.53 Est GFR ( Amer) > 60 Est GFR (Non-Af Amer) > 60 Glucose 72 L Calcium 9.3 Total Bilirubin 0.4 AST 24 ALT 13 Alkaline Phosphatase 105 Total Protein 7.0 Albumin 3.6 Lipase 77.6 Urine Color Urine Appearance Urine pH Ur Specific [place] Urine Protein Urine Glucose (UA) Urine Ketones Urine Blood Urine Nitrite Ur Leukocyte Esterase Urine WBC (Auto) Urine RBC (Auto) Blood Type O NEGATIVE Antibody Screen NEGATIVE Plan Discharge Plan: discharge home with follow up at office in 2 wks ([place]). Pt elects to take remains for cremation. Time Spent: Less than 30 Minutes
== END 2018-05-07 16:43 | disposition home or self-care (01) | DRG 779 ==
LOC: ER 08:51 → EH 10:48 → 2N 13:22
PROVIDERS: ADMIT Obstetrics & Gynecology; ATTEND Obstetrics & Gynecology
PROC: 10D17Z9 Manual Extraction of Products of Conception, Retained, Via Natural or Artificial Opening (ICD-10-PCS; principal; 2018-05-07)
DX: O03.39 Incomplete spontaneous abortion with other complications (principal)
CPT/HCPCS: 1965; 36415; 80053; 81001; 83690; 84702; 85025; 86850; 86900; 86901; 88305; 99285; J0131; J1100; J1885; J2250; J2405; J2704; J3010; J3490